=== PATIENT | male | born 1980 | race Caucasian/White ===

== ENCOUNTER 2025-02-08 09:52 | Emergency (ER) | payer OTHER, SELFPAY ==
[2025-02-08 09:57] VITALS: BP 146/100
[2025-02-08 11:09] VITALS: BMI 25.8
--- NOTE | 2025-02-08 11:44 | ED.MUSCINJ ---
HPI-Injury
General
Chief Complaint: Musculo-Skeletal Complaint
Source: patient
Exam Limitations: none
Time Seen by Provider: 02/08/25 11:29
History of Present Illness-Injury
Initial Injury comments:
44-year-old male presents with pain to the bottom of his right foot with associated swelling to the foot and ankle that radiates up the calf. He also noted swelling in the calf. In years past she has had heel pain that has resolved with
Stretching. He has tried calf stretch recently however it is not helping his heel pain. First couple steps tend to hurt worse and tends to loosen up some but as he continues to be on it and use it it hurts more. No known injury. No fevers chest
pain or shortness of breath. No other complaints at this time
Phy Exam
Physical Exam
Physical Exam:
General: Well-appearing male no acute respiratory distress
HEENT: Normocephalic atraumatic
Musculoskeletal exam: Right foot is tender over the plantar surface of the foot near the ball of the foot. He also has swelling of the lateral ankle. No objective swelling of the calf however the patient describes a recent history of such.
Vascular: 2+ DP pulse right foot
Neurologic: Good sensation and function right foot
Injury Course
Orders/Labs/Results
Orders:
Orders
02/08/25 10:01
Foot, Right 3 View [CR Foot - Right Min 3 Views] Urgent
Comment:
Reason For Exam: pain
02/08/25 11:43
Venous Doppler Lwr Ext Rt [US Periph Venous LOWER Ext RT] Urgent
Comment:
Reason For Exam: swelling
MDM/Problems Addressed
Differential Diagnosis Includes:
Right foot pain relatively atraumatic. Consider tendinitis versus plantar fasciitis. Patient concerned about potential for DVT secondary to the calf swelling. Exam today not consistent but will order ultrasound. X-ray was ordered through triage
of his foot which was negative for acute bony abnormality.
*Pulse Oximetry
SaO2: 98
Oxygen Mode of Delivery: Room air
Patient hypoxic: no
*Critical Care Note
Total Time (30-74mins, 75-104mins- exclusive of procedures): Not Applicable
Update Note
Update Note:
Ultrasound negative for DVT. Patient reassured. I suspect inflammatory process such as planta fasciitis. Recommended stretches and ice massage. Stable for discharge.
ED Attending Note
-
Portions of this chart may have been created with voice recognition software.� Occasional wrong word or��sound alike� substitutions may have occurred due to the inherent limitations of voice recognition software.
Discharge Plan
Departure
Patient Disposition: Home (Routine Discharge)
Date of Disposition: 02/08/25
Time of Disposition: 12:58
Patient with high blood pressure during this ER visit?: No
Discharge Problem:
Plantar fasciitis
Instructions: Muscle and Bone Pain (DC)
Referrals:
NONE,* [Family Provider, Internal Medicine]
Activity Restrictions/Additional Instructions:
Continue with anti-inflammatories if needed ice, stretch and rest. Return if worse otherwise follow-up with ankle specialist if symptoms persist
Interventions
Interventions:
*Risk Screen - Suicide Last Done: 02/08/25 09:57
*General Assessment Last Done: 02/08/25 11:09
*Neglect/Abuse Screening Last Done: 02/08/25 09:57
*ED- Fall Risk Assessment Last Done: 02/08/25 11:09
*ED COVID-19 Vaccine History Last Done: 02/08/25 11:09
ED-Musculoskeletal Assessment Last Done: 02/08/25 11:09
Discharge Date and Time
Print Language: MAORI
[2025-02-08 13:05] VITALS: BP 132/93
== END 2025-02-08 13:07 | disposition home or self-care (01) ==
LOC: EMR 09:52
PROVIDERS: EMERGENCY PHYSICIAN Emergency Medicine
DX: M72.2 Plantar fascial fibromatosis (principal); R22.41 Localized swelling, mass and lump, right lower limb
CPT/HCPCS: 99284; 73630; 93971